=== PATIENT | male | born 1950 | race Caucasian/White ===

== ENCOUNTER → 2019-05-31 | Outpatient (CLI) | payer OTHER | END | disposition home or self-care (01) | LOC: PLD 07:58 → LAB SHORT 07:58 | DX: M72.2 Plantar fascial fibromatosis (principal); M79.671 Pain in right foot; M72.9 Fibroblastic disorder, unspecified | CPT/HCPCS: 88304 ==

== ENCOUNTER 2024-04-28 05:50 | Day surgery (SDC) | payer OTHER ==
[~2024-04-28] VITALS: Ht 174 cm; Wt 89.5 kg
[2024-04-28] VITALS (8 sets, daily range): BP systolic 148–155; BP diastolic 69–93
[~2024-04-28 05:50] MED LIST: ATOR40TA PO; FAMO10 PO; FLUT.05NI; HYDCHL25 PO; SILD50TA PO; TAMS.4ER PO
[2024-04-28] MEDS ORDERED: CeFAZolin Sodium 2,000 MG in NS 100 ML IV SCH (06:15)
[2024-04-28] MEDS ORDERED: Lactated Ringer's 1,000 ML IV SCH (06:15)
[2024-04-28] MEDS ORDERED: Ondansetron HCl 2 MG / ML 2ML Vial ONE (06:35)
[2024-04-28] MEDS ORDERED: FentaNYL Citrate 50 MCG/ML 2 ML Injection ONE (06:35)
[2024-04-28] MEDS ORDERED: Dexamethasone Sod Phos 10 MG/ML 1ML VIAL ONE (06:35)
[2024-04-28] MEDS ORDERED: propofoL 20 ML IV ONE (06:35)
[2024-04-28] MEDS ORDERED: Lidocaine HCl 2% 20 ML MDV ONE (06:35)
[2024-04-28] MEDS ORDERED: PROM12.5S PR (06:41)
[2024-04-28] MEDS ORDERED: Lidocaine HCl 1% 5 ML SYR INJ ONE (06:45)
[2024-04-28] MEDS ORDERED: Midazolam HCl 1MG / ML 2ML Vial IV PRN (06:45)
[2024-04-28] MEDS ORDERED: Bupivacaine 0.5% HCl 5 MG/ML 30MLVIAL ONE (07:15)
[2024-04-28 07:23] LABS: BASOPHILS ABSOLUTE AUTO 0.03 K/mm3 (0.00-0.23); BASOPHILS PERCENT AUTO 1 % (0-2); EOSINOPHILS ABSOLUTE AUTO 0.16 K/mm3 (0.00-0.68); EOSINOPHILS PERCENT AUTO 3 % (0-6); Hematocrit 41.1 % (37.0-53.0); Hemoglobin 13.6 g/dL (13.5-17.5); IMMATURE GRAN PERCENT AUTO 0 % (0-1); LYMPHOCYTES PERCENT AUTO 27 % (21-46); MONOCYTES ABSOLUTE AUTO 0.38 K/mm3 (0.16-1.47); MONOCYTES PERCENT AUTO 7 % (4-13); Mean Corpuscular HGB 29.4 pg (26.0-34.0); Mean Corpuscular HGB Conc 33.1 g/dL (31.5-36.5); Mean Corpuscular Volume 89 fL (80-100); Mean Platelet Volume 10.6 fL (9.1-12.4); NEUTROPHILS ABSOLUTE AUTO 3.29 K/mm3 (1.96-9.15); NEUTROPHILS PERCENT AUTO 63 % (41-73); Platelet Count 178 K/mm3 (150-400); RDW Coefficient Variation 12.9 % (11.7-14.2); RDW Standard Deviation 42.5 fL (35.1-46.3); Red Blood Cell Count 4.62 M/mm3 (4.30-5.90); White Blood Cell Count 5.26 K/mm3 (4.00-11.30)
--- NOTE | 2024-04-28 07:23 | NUR ---
History, Chart, Medications and Allergies reviewed before start of procedure. Patient up to Ambulate independently. Gait steady. Pre-Op teaching done. Pt verbalizes understanding. Patient confirms NPO status and agrees with scheduled surgery. Patient States Post-Procedure ride home has been arranged. Patient sts he was not given a CHL scrub.
[2024-04-28 07:47] LABS: Bun/Creatinine Ratio 17.9 (12.0-20.0); Calcium, Blood 9.1 mg/dL (8.5-10.1); Creatinine, Blood 0.73 mg/dL (0.60-1.20)
[2024-04-28] MEDS ORDERED: OxyCODONE 5 mg/Acetamin 325 mg TABLET PO PRN (08:50)
--- NOTE | 2024-04-28 09:43 | NUR ---
Patient up to Ambulate independently. Gait steady. Discharge instructions reviewed with patient. Patient verbalizes understanding. Copy given to patient to take home, [facility]. Patient States Post-Procedure ride home has been arranged. Discharged via wheelchair to private car for ride home. PT TOLERATING PO. DENIES PAIN, N/V, SOB. PT A/O. INCISION SITES C/D/I. DECLINES PAIN MED.
== END 2024-04-28 09:43 | disposition home or self-care (01) ==
LOC: ORSCMMR 05:50 → ORD 07:30 → ORSCMMR 09:43
PROVIDERS: Surgery
PROC: 06BY0ZC Excision of Hemorrhoidal Plexus, Open Approach (ICD-10-PCS; principal; 2024-04-28 07:30)
PROC: 0JB50ZX Excision of Left Neck Subcutaneous Tissue and Fascia, Open Approach, Diagnostic (ICD-10-PCS; principal; 2024-04-28 07:30)
PROC: 0JB70ZX Excision of Back Subcutaneous Tissue and Fascia, Open Approach, Diagnostic (ICD-10-PCS; principal; 2024-04-28 07:30)
DX: L72.0 Epidermal cyst (principal); K64.8 Other hemorrhoids; K64.4 Residual hemorrhoidal skin tags; I10 Essential (primary) hypertension; K21.9 Gastro-esophageal reflux disease without esophagitis; Z87.891 Personal history of nicotine dependence; Z79.899 Other long term (current) drug therapy
CPT/HCPCS: 80048; 85025; 88304; J0690; J1100; J2405; J2704; J3010; J7120